=== PATIENT | male | born 1955 | race Caucasian/White ===

== ENCOUNTER 2023-11-05 11:36 | Inpatient (IN) | payer MEDICARE, MEDICAID ==
[~2023-11-05] VITALS: Ht 160 cm; Wt 54.0 kg
[2023-11-05 12:04] LABS: BASOPHILS % 0.8 % (0.0-2.0); EOSINOPHILS % 0.1 % (0.0-5.0); HEMATOCRIT. 47.6 % (42.0-52.0); HEMOGLOBIN. 16.8 g/dL (14.0-18.0); LYMPHOCYTES % 11.7 % (20.0-50.0); MEAN CORPUSCULAR HEMOGLOBIN 34.4 pg (28.0-32.0); MEAN CORPUSCULAR HGB CONC 35.3 g/dL (31.0-37.0); MEAN CORPUSCULAR VOLUME 97.5 fL (80.0-94.0); MEAN PLATELET VOLUME 7.8 fl (7.4-10.4); MONOCYTES % 11.7 % (2.0-8.0); NEUTROPHILS % 75.7 % (40.0-76.0); PLATELET 228 x1000/uL (130-400); RED BLOOD CELL COUNT 4.88 mill/uL (4.7-6.1); RED CELL DISTRIBUTION WIDTH 15.2 % (11.6-14.6); WHITE BLOOD COUNT 13.5 x1000/uL (4.5-11.0)
[2023-11-05 12:14] LABS: CHLORIDE 99 mEq/L (98-107); POTASSIUM 3.7 mEq/L (3.5-5.1); SODIUM 134 mEq/L (136-145)
[2023-11-05 12:15] LABS: CARBON DIOXIDE 29 mEq/L (21-32)
[2023-11-05 12:16] LABS: CALCIUM 9.1 mg/dL (8.7-10.4)
[2023-11-05 12:20] LABS: CREATININE 0.9 mg/dL (0.6-1.3)
[2023-11-05 12:21] LABS: GLUCOSE 130 mg/dL (70-105); UREA NITROGEN BLOOD 8 mg/dL (9-23)
[2023-11-05 12:22] LABS: TROPONIN I HIGH SENSITIVITY 25 ng/L (3.0-53)
[2023-11-05] MEDS: METHYLPREDNISOLONE SOD SUCC 125MG/2ML (ACT-O-VIAL) IV STA (12:24)
[2023-11-05 12:49] LABS: TROPONIN I HIGH SENSITIVITY 23 ng/L (3.0-53)
[2023-11-05 12:50] LABS: ALANINE AMINOTRANSFERASE 8 IU/L (10-49); ALBUMIN 3.5 g/dL (3.2-4.8); ASPARTATE AMINOTRANSFERASE 19 IU/L (<34); BILIRUBIN DIRECT 0.8 mg/dL (<=3.0); BILIRUBIN TOTAL 1.7 mg/dL (0.1-1.0); PROTEIN TOTAL 7.7 g/dL (6.0-8.3)
[2023-11-05 13:23] VITALS: PULSE 99; RESP 20; O2SAT 97
[2023-11-05] MEDS: ALBUTEROL (0.083%) 2.5MG/3ML NEB HHN SCH ×2 (13:23→21:00)
[2023-11-05] MEDS: IPRATROPIUM BROMIDE (0.02%) 0.5MG/2.5ML NEB HHN STA (13:23)
[2023-11-05] MEDS: CEFTRIAXONE 1GM/50ML 50 ML IV NR (13:38)
[2023-11-05] MEDS: AZITHROMYCIN 500 MG TABLET PO NR (13:38)
[2023-11-05 15:46] LABS: TROPONIN I HIGH SENSITIVITY 20 ng/L (3.0-53)
[2023-11-05] MEDS ORDERED: LEVOFLOXACIN 500MG PREMIX 100 ML IV SCH (17:30)
[2023-11-05] MEDS ORDERED: ONDANSETRON HCL 4MG/2ML INJ IV PRN (18:00)
[2023-11-05] MEDS ORDERED: ACETAMINOPHEN 325MG TABLET PO PRN (18:00)
[2023-11-05] MEDS: IPRATROPIUM/ALBUTEROL 0.5-3(2.5)MG/3ML NEB HHN SCH (18:00)
[2023-11-05] MEDS ORDERED: CLONIDINE 0.1MG TABLET PO PRN (18:00)
[2023-11-05 19:21] LABS: CHLORIDE 101 mEq/L (98-107); POTASSIUM 3.3 mEq/L (3.5-5.1); SODIUM 135 mEq/L (136-145)
[2023-11-05 19:22] LABS: CALCIUM 8.9 mg/dL (8.7-10.4); CARBON DIOXIDE 24 mEq/L (21-32)
[2023-11-05 19:27] LABS: CREATININE 0.7 mg/dL (0.6-1.3); GLUCOSE 195 mg/dL (70-105); UREA NITROGEN BLOOD 8 mg/dL (9-23)
[2023-11-05 19:28] LABS: TROPONIN I HIGH SENSITIVITY 20 ng/L (3.0-53)
[2023-11-05 19:29] LABS: ALANINE AMINOTRANSFERASE 7 IU/L (10-49); ALBUMIN 3.3 g/dL (3.2-4.8); ASPARTATE AMINOTRANSFERASE 17 IU/L (<34); PROTEIN TOTAL 7.5 g/dL (6.0-8.3)
[2023-11-06] VITALS (10 sets, daily range): BP systolic 87–99; BP diastolic 61–85; PULSE 65–106; RESP 18–20; TEMP 97.5–97.9; O2SAT 97
[2023-11-06 01:10] LABS: CREATINE KINASE MB FRACTION < 0.5 ng/mL (0.5-3.6); TROPONIN I HIGH SENSITIVITY 19 ng/L (3.0-53)
[2023-11-06 01:11] LABS: CREATINE KINASE 24 IU/L (46-171)
[2023-11-06 07:26] LABS: BASOPHILS % 0.3 % (0.0-2.0); DIFFERENTIAL COMMENT 0; HEMATOCRIT. 46.6 % (42.0-52.0); HEMOGLOBIN. 15.5 g/dL (14.0-18.0); LYMPHOCYTES % 15.8 % (20.0-50.0); MEAN CORPUSCULAR HEMOGLOBIN 33.9 pg (28.0-32.0); MEAN CORPUSCULAR HGB CONC 33.1 g/dL (31.0-37.0); MEAN CORPUSCULAR VOLUME 102.1 fL (80.0-94.0); MEAN PLATELET VOLUME 8.4 fl (7.4-10.4); MONOCYTES % 6.1 % (2.0-8.0); NEUTROPHILS % 77.8 % (40.0-76.0); PLATELET 203 x1000/uL (130-400); RED BLOOD CELL COUNT 4.57 mill/uL (4.7-6.1); RED CELL DISTRIBUTION WIDTH 15.8 % (11.6-14.6)
[2023-11-06 07:36] LABS: CARBON DIOXIDE 25 mEq/L (21-32); CHLORIDE 102 mEq/L (98-107); SODIUM 138 mEq/L (136-145)
[2023-11-06 07:37] LABS: CALCIUM 9.7 mg/dL (8.7-10.4)
[2023-11-06 07:39] LABS: CREATINE KINASE MB FRACTION < 0.5 ng/mL (0.5-3.6); TROPONIN I HIGH SENSITIVITY 18 ng/L (3.0-53)
[2023-11-06 07:42] LABS: CREATINE KINASE 24 IU/L (46-171); CREATININE 0.7 mg/dL (0.6-1.3); GLUCOSE 138 mg/dL (70-105); UREA NITROGEN BLOOD 11 mg/dL (9-23)
[2023-11-06 09:39] LABS: BG BASE EXCESS 0.3 mmol/L (-2.0-2.0); BG CARBOXYHEMOGLOBIN 0.6 % (0.5-1.5); BG DEOXYHEMOGLOBIN 2.6 % (0.0-5.0); BG FRACTION INSPIRED OXYGEN 28; BG HCO3 ACT 24.9 mmol/L (22.0-26.0); BG METHEMOGLOBIN 0.3 % (0.0-1.5); BG OXYGEN SATURATION 97.4 % (92.0-98.5); BG OXYHEMOGLOBIN 96.5 % (94.0-97.0); BG PCO2 40.2 mmHg (35.0-45.0); BG PH 7.409 (7.350-7.450); BG PO2 96.3 mmHg (75.0-100.0); BG SAMPLE SITE RIGHT RADIAL; BG TOTAL HEMOGLOBIN 16.3 g/dL (12.0-18.0); BG VENT MODE NASAL CANNULA
[2023-11-06] MEDS: POTASSIUM CHLORIDE 20MEQ TABLET SR PO NR (11:34)
[2023-11-06] MEDS: FAMOTIDINE 20MG TABLET PO SCH (12:19)
[2023-11-06 16:14] LABS: CLARITY URINE CLEAR (CLEAR); COLOR URINE DARK YELLOW (YELLOW); GLUCOSE URINE NEGATIVE (NEGATIVE); KETONES URINE TRACE (NEGATIVE); LEUKOCYTE ESTERASE URINE NEGATIVE (NEGATIVE); NITRITE URINE NEGATIVE (NEGATIVE); OCCULT BLOOD URINE NEGATIVE (NEGATIVE); PROTEIN URINE 1+ (NEGATIVE); SPECIFIC GRAVITY URINE 1.033 (1.005-1.030); UROBILINOGEN URINE 0.2 E.U./dL (0.2-1.0)
[2023-11-06 16:28] LABS: *AMPHETAMINES SCREEN URINE NEGATIVE (NEGATIVE); *BARBITURATES SCREEN URINE NEGATIVE (NEGATIVE); *BENZODIAZEPINES SCREEN URINE NEGATIVE (NEGATIVE); *COCAINE SCREEN URINE NEGATIVE (NEGATIVE); BACTERIA URINE TRACE; CANNABINOID URINE SCREEN NEGATIVE (NEGATIVE); ECSTASY MDMA SCREEN URINE NEGATIVE (NEGATIVE); HYALINE CASTS URINE 0-5 /lpf; METHADONE URINE SCREEN NEGATIVE (NEGATIVE); MUCUS URINE 2+ /lpf (NONE/TRACE); OPIATES URINE SCREEN NEGATIVE (NEGATIVE); PHENCYCLIDINE URINE SCREEN NEGATIVE (NEGATIVE); RBC URINE NONE SEEN /hpf (0-2); SQUAMOUS EPITHELIAL CELL URINE RARE /lpf (RARE/1+); WBC URINE NONE SEEN /hpf (0-2)
[2023-11-06] MEDS: LEVOFLOXACIN 750MG PREMIX 150 ML IV SCH (18:01)
[2023-11-06] MEDS: ENOXAPARIN 40MG/0.4ML SYR SUBCUT SCH (18:02)
[2023-11-06] MEDS: PREDNISONE 20MG TABLET PO SCH (18:26)
[2023-11-06] MEDS: GUAIFENESIN 600MG ER TABLET PO SCH (20:16)
[2023-11-07] VITALS (10 sets, daily range): BP systolic 91–106; BP diastolic 55–73; PULSE 69–94; RESP 18–22; TEMP 96.4–99.6; O2SAT 98–99
[2023-11-07] MEDS: IPRATROPIUM/ALBUTEROL 0.5-3(2.5)MG/3ML NEB HHN SCH (01:17)
[2023-11-07 06:23] LABS: CHLORIDE 103 mEq/L (98-107); POTASSIUM 3.8 mEq/L (3.5-5.1); SODIUM 136 mEq/L (136-145)
[2023-11-07 06:24] LABS: CALCIUM 9.2 mg/dL (8.7-10.4); CARBON DIOXIDE 25 mEq/L (21-32)
[2023-11-07 06:29] LABS: CREATININE 0.6 mg/dL (0.6-1.3); GLUCOSE 125 mg/dL (70-105); UREA NITROGEN BLOOD 15 mg/dL (9-23)
[2023-11-07 06:59] LABS: BASOPHILS % 0.1 % (0.0-2.0); HEMATOCRIT. 41.8 % (42.0-52.0); HEMOGLOBIN. 14.4 g/dL (14.0-18.0); LYMPHOCYTES % 8.8 % (20.0-50.0); MEAN CORPUSCULAR HEMOGLOBIN 33.9 pg (28.0-32.0); MEAN CORPUSCULAR HGB CONC 34.4 g/dL (31.0-37.0); MEAN CORPUSCULAR VOLUME 98.4 fL (80.0-94.0); MEAN PLATELET VOLUME 9.1 fl (7.4-10.4); MONOCYTES % 7.2 % (2.0-8.0); NEUTROPHILS % 83.9 % (40.0-76.0); PLATELET 201 x1000/uL (130-400); RED BLOOD CELL COUNT 4.25 mill/uL (4.7-6.1); RED CELL DISTRIBUTION WIDTH 14.9 % (11.6-14.6); WHITE BLOOD COUNT 10.7 x1000/uL (4.5-11.0)
[2023-11-07] MEDS ORDERED: P20 PO (16:27)
[2023-11-07] MEDS ORDERED: LEVO750T68 MT (16:27)
[2023-11-07] MEDS ORDERED: GUAI600T44 PO (16:27)
[2023-11-08 00:47] VITALS: BP 96/61; PULSE 65; RESP 18; TEMP 96.3
[2023-11-08 01:54] VITALS: PULSE 71; RESP 18
[2023-11-08 04:00] VITALS: BP 96/68; PULSE 71; RESP 18; TEMP 96.8
[2023-11-08 07:55] VITALS: PULSE 79; RESP 18; O2SAT 95
[2023-11-08 08:00] VITALS: BP 110/72; PULSE 96; RESP 20; TEMP 97.7
[2023-11-08] MEDS: LEVOFLOXACIN 250MG TABLET PO SCH (09:00)
[2023-11-08 09:31] VITALS: BP 110/72; PULSE 96; TEMP 97.7; O2SAT 98
== END 2023-11-08 13:07 | disposition home or self-care (01) | DRG 177 ==
LOC: ER 11:36 → 5WST 15:43 → EDBEDREQTM 15:44 → EDBEDREQ 15:44 → 8WST 23:55
PROVIDERS: ADMIT Internal Medicine; ATTEND Internal Medicine
DX: J69.0 Pneumonitis due to inhalation of food and vomit (principal); J96.21 Acute and chronic respiratory failure with hypoxia; J44.1 Chronic obstructive pulmonary disease with (acute) exacerbation; I42.9 Cardiomyopathy, unspecified; E87.1 Hypo-osmolality and hyponatremia; J84.10 Pulmonary fibrosis, unspecified; J44.89 Other specified chronic obstructive pulmonary disease; I10 Essential (primary) hypertension; E87.6 Hypokalemia; Z87.891 Personal history of nicotine dependence; Z87.01 Personal history of pneumonia (recurrent)
CPT/HCPCS: 36415; 36600; 71045; 71275; 80048; 80053; 80076; 80305; 81003; 82375; 82550; 82553; 82803; 82805; 83605; 83880; 84484; 85025; 85379; 86038; 86431; 92610; 93005; 93306; 93970; 94640; 97161; 99285; J0696; J1650; J1956; J2930; J7512